=== PATIENT | female | born 1935 | race Two or more races ===

== ENCOUNTER 2017-05-01 12:38 | Emergency (ER) | payer OTHER ==
[2017-05-01 12:44] VITALS: BMI 23.8
[2017-05-01] MEDS ORDERED: SODIUM CHLORIDE 500 ML IV STA (14:04)
[2017-05-01] MEDS ORDERED: MECLIZINE HCL 25 MG TABLET (FP) PO ONE (14:04)
[2017-05-01] MEDS ORDERED: ONDANSETRON 4 MG/2 ML VIAL IVPUSH ONE (14:04)
[2017-05-01] MEDS ORDERED: ONDANSETRON 4 MG/2 ML VIAL ONE (14:14)
[2017-05-01] MEDS ORDERED: MECLIZINE HCL 12.5 MG TABLET ONE (14:15)
[2017-05-01 14:22] LABS: BASOPHIL 0.2 % (0-2.0); EOSINOPHIL 0.1 % (0-4.5); MCH 29.5 pg (25.7-33.7); MCHC 32.9 g/dl (32.0-36.0); MEAN CELL VOLUME 89.8 fl (80-96); MEAN PLT VOLUME 9.4 fl (7.5-11.1); NEUTROPHILS 85.6 % (42.8-82.8); PLATELET COUNT 223 K/MM3 (134-434); RDW 14.7 % (11.6-15.6); WHITE BLOOD COUNT 9.4 K/mm3 (4.0-10.0)
[2017-05-01 14:28] LABS: URINE APPEARANCE CLEAR; URINE BILIRUBIN NEGATIVE (NEGATIVE); URINE BLOOD NEGATIVE (NEGATIVE); URINE COLOR LTYELLOW; URINE GLUCOSE (UA) 2+ (NEGATIVE); URINE KETONE TRACE (NEGATIVE); URINE LEUK ESTERASE NEGATIVE (NEGATIVE); URINE NITRITE NEGATIVE (NEGATIVE); URINE PROTEIN NEGATIVE (NEGATIVE); URINE UROBILINOGEN NEGATIVE E.U./dl (0.2-1.0)
[2017-05-01 14:52] LABS: ALBUMIN 3.9 g/dl (3.4-5.0); ANION GAP 9 (8-16); BILIRUBIN,TOTAL 0.6 mg/dL (0.2-1.0); CALCIUM 8.8 mg/dL (8.5-10.1); CO2 27 mmol/L (21-32); CREATININE 0.5 mg/dL (0.55-1.02); GLUCOSE,RANDOM 174 mg/dL (74-106); SGOT/AST 19 U/L (15-37); SGPT/ALT 21 U/L (12-78)
[2017-05-01 14:55] LABS: ALK PHOS 137 U/L (45-117); TOT PROT 7.3 g/dl (6.4-8.2); TROPONIN I < 0.02 ng/ml (0.00-0.05)
--- NOTE | 2017-05-01 15:10 | PDOC ---
History of Present Illness - General Chief Complaint: Lightheaded Stated Complaint: VOMITING/DIZZINESS Time Seen by Provider: 05/01/17 13:33 History Source: Patient Exam Limitations: No Limitations - History of Present Illness Initial Comments: 05/01/17 14:10 81-year-old female with complaints of positional dizziness associated with nausea and intermittent vomiting since yesterday morning upon awakening. Patient states went to see her primary care physician Dr. Thibodeaux who prescribed her meclizine and told to take the medication twice a day. Patient states didn' t take the medication last night and then this morning but states symptoms returned upon awakening this morning he decided come to the ER. Patient has no complaints of visual changes, neck stiffness, fever, chills, chest pain, shortness of breath, abdominal pain, dysuria, diarrhea, or rash. Patient does state mild frontal headache which she describes a throbbing sensation. Patient states history of diabetes, hypertension, and denies history of vertigo prior to yesterday. Patient denies weakness, blurry vision and states she eats a hold onto furniture or sit down since she feels as if the room is spinning worsened with standing and position changes. Timing/Duration: reports: increasing Severity: Yes: mild Associated Symptoms: reports: nausea/vomiting Past History - Past Medical History Allergies/Adverse Reactions: Allergies Allergy/AdvReac Type Severity Reaction Status Date / Time No Known Drug Allergies Allergy Verified 05/01/17 12:44 Home Medications: Ambulatory Orders Meclizine HCl 12.5 mg PO BID 05/01/17 Metformin HCl [Metformin HCl ER] 500 mg PO DAILY 05/01/17 Metoprolol Succinate [Toprol Xl -] 25 mg PO DAILY 05/01/17 Anemia: No Asthma: No Cancer: No CVA: No COPD: No CHF: No Dementia: No Diabetes: Yes GI Disorders: No Disorders: No HTN: Yes Hypercholesterolemia: Yes Liver Disease: No Seizures: No Thyroid Disease: No - Surgical History Abdominal Surgery: No Appendectomy: No Cardiac Surgery: No Cholecystectomy: No Lung Surgery: No Neurologic Surgery: No Orthopedic Surgery: No - Psycho/Social/Smoking Cessation Hx Suicidal Ideation: No Smoking History: Never smoked Information on smoking cessation initiated: No Hx Alcohol Use: No Drug/Substance Use Hx: No Substance Use Type: None Hx Substance Use Treatment: No Patient Lives Alone: No Lives with/in: home health aid Review of Systems - Review of Systems Able to Perform ROS?: Yes Constitutional: No: Symptoms Reported HEENTM: No: Symptoms Reported Respiratory: No: Symptoms reported Cardiac (ROS): Yes: Lightheadedness ABD/GI: Yes: Nausea, Vomiting Musculoskeletal: No: Symptoms Reported Integumentary: No: Symptoms Reported Neurological: Yes: Dizziness Hematologic/Lymphatic: No: Symptoms Reported *Physical Exam - Vital Signs Last Vital Signs Temp Pulse Resp BP Pulse Ox 97.8 F 62 18 140/80 98 05/01/17 12:42 05/01/17 12:42 05/01/17 12:42 05/01/17 12:42 05/01/17 12:42 - Physical Exam General Appearance: Yes: Nourished, Appropriately Dressed. No: Apparent Distress HEENT: positive: EOMI, MARCIO. negative: Pale Conjunctivae Neck: positive: Supple Respiratory/Chest: positive: Lungs Clear, Normal Breath Sounds. negative: Respiratory Distress, Accessory Muscle Use Cardiovascular: positive: Regular Rhythm, Regular Rate. negative: Murmur Gastrointestinal/Abdominal: positive: Soft. negative: Tenderness Extremity: positive: Normal Capillary Refill. negative: Pedal Edema Integumentary: positive: Normal Color, Warm, Moist Neurologic: positive: Motor Strength 5/5, Other (positive Mcdowell pikes to the left.) ED Treatment Course - LABORATORY CBC & Chemistry Diagram: 05/01/17 14:16 05/01/17 14:16 - ADDITIONAL ORDERS Additional order review: 05/01/17 14:16 RBC 4.24 MCV 89.8 MCHC 29.5 RDW 14.7 MPV 9.4 Neutrophils % 85.6 H D Lymphocytes % 10.9 D Monocytes % 3.2 L Eosinophils % 0.1 D Basophils % 0.2 - RADIOLOGY Radiology Studies Ordered: Category Date Time Status HEAD CT WITHOUT CONTRAST [CT] Stat CT Scan 05/01/17 14:03 Ordered CHEST X-RAY PORTABLE* [RAD] Stat Radiology 05/01/17 14:04 Completed - Medications Given in the ED: ED Medications Discontinued Medications Generic Name Dose Route Start Last Admin Trade Name Freq PRN Reason Stop Dose Admin Meclizine HCl 25 mg 05/01/17 14:04 05/01/17 14:18 Antivert - PO 05/01/17 14:05 25 mg ONCE ONE Administration Ondansetron HCl 4 mg 05/01/17 14:04 05/01/17 14:19 Zofran Injection IVPUSH 05/01/17 14:05 4 mg ONCE ONE Administration Medical Decision Making - Medical Decision Making 05/01/17 15:15 Patient with episodic dizziness worsened with standing and position changes. Patient states was started on meclizine 12.[address] Thibodeaux but states minimal improvement. Patient also mentioning nausea and vomiting with episodes and presently has a mild frontal throbbing headache. 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 Patient ordered for cardiac workup including a head CT , meclizine 25 mg, Zofran, IV fluids and urinalysis. 05/01/17 16:04 Chest x-ray shows no evidence of basilar congestion or pulmonary consolidations. Head CT showed no intracranial hemorrhage or acute vascular territory infarction. Laboratory Tests 05/01/17 05/01/17 05/01/17 14:10 14:16 14:16 WBC 9.4 D Hgb 12.5 Hct 38.0 Neutrophils % 85.6 H D Monocytes % 3.2 L Sodium 140 Potassium 4.5 Chloride 104 Carbon Dioxide 27 Anion Gap 9 BUN 16 Creatinine 0.5 L D Creat Clearance w eGFR > 60 Random Glucose 174 H D Calcium 8.8 Magnesium Total Bilirubin 0.6 D AST 19 ALT 21 Alkaline Phosphatase 137 H Troponin I < 0.02 Urine Glucose (UA) 2+ H Urine Ketones Trace H 05/01/17 15:40 WBC Hgb Hct Neutrophils % Monocytes % Sodium Potassium Chloride Carbon Dioxide Anion Gap BUN Creatinine Creat Clearance w eGFR Random Glucose Calcium Magnesium 2.1 Total Bilirubin AST ALT Alkaline Phosphatase Troponin I Urine Glucose (UA) Urine Ketones 05/01/17 16:04 Selected Entries 05/01/17 12:42 Pulse Rate 62 Blood Pressure 140/80 Patient states feeling somewhat better. Patient will be revitalized and escorted in the ER to ambulate. 05/01/17 16:40 Patient ambulated in small steps with nurse. Patient states she became dizzy with standing but was tolerable. Case discussed with patient's PCP Dr. lobato and offered either patient admission or discharge with follow-up to ENT. Both the patient and daughter want to go home and will discharge patient home with the increase of her meclizine to 25 mg and a urine culture to be sent. *DC/Admit/Observation/Transfer Diagnosis at time of Disposition: Vertigo - Discharge Dispostion Disposition: HOME Condition at time of disposition: Improved - Referrals Referrals: Blu Lobato MD [Primary Care Provider] - Handy Denton MD [Staff Physician] - - Patient Instructions Printed Discharge Instructions: DI for Vertigo Additional Instructions: Please take medication as prescribed and discard previous medication. Please follow-up with ENT specialist and get up in increments from lying position as discussed. If symptoms worsen prior to your follow please return to the ED.
--- NOTE | 2017-05-01 15:43 | EKG ---
Test Reason : Blood Pressure : / mmHG Vent. Rate : 065 BPM Atrial Rate : 065 BPM P-R Int : 178 ms QRS Dur : 152 ms QT Int : 474 ms P-R-T Axes : 060 -57 014 degrees QTc Int : 492 ms NORMAL SINUS RHYTHM POSSIBLE LEFT ATRIAL ENLARGEMENT LEFT AXIS DEVIATION RIGHT BUNDLE BRANCH BLOCK ABNORMAL ECG WHEN COMPARED WITH ECG OF 10-JUN-2013 10:47, NO SIGNIFICANT CHANGE WAS FOUND Confirmed by MALCOLM PALMER MD ([id number]) on 05/01/2017 3:43:30 PM Referred By: Confirmed By:MALCOLM PALMER MD
[2017-05-01 16:27] VITALS: BP 161/75; PULSE 63; TEMP 97.7
== END 2017-05-01 16:50 | disposition home or self-care (01) ==
LOC: JER 12:38
PROC: 3E033GC Introduction of Other Therapeutic Substance into Peripheral Vein, Percutaneous Approach (ICD-10-PCS; principal; 2017-05-01)
DX: R42 Dizziness and giddiness (principal)
CPT/HCPCS: 36415; 70450-TC; 71010-TC; 80053; 81003; 82550; 83735; 84484; 85025; 87086; 93005; 93010; 96374; 99283-25

== ENCOUNTER 2021-12-07 13:15 | Emergency (ER) | payer OTHER ==
[2021-12-07 13:33] VITALS: BP 178/80; PULSE 70; TEMP 98.2; BMI 26.4
[2021-12-07] MEDS ORDERED: KETOROLAC TROMETHAMINE 60 MG/2 ML VIAL IM ONE (14:58)
[2021-12-07] MEDS ORDERED: ACETAMINOPHEN 325 MG TABLET (FP) PO ONE (14:58)
[2021-12-07] MEDS ORDERED: LIDOCAINE 5% TOPICAL PATCH TP ONE (14:58)
[2021-12-07] MEDS ORDERED: METHOCARBAMOL 500 MG TABLET PO ONE (14:59)
[2021-12-07] MEDS ORDERED: ACETAMINOPHEN 500 MG TABLET (FP) ONE (15:07)
[2021-12-07] MEDS ORDERED: KETOROLAC TROMETHAMINE 15 MG/ML VIAL ONE (15:07)
[2021-12-07] MEDS ORDERED: LIDOCAINE 5% TOPICAL PATCH ONE (15:07)
[2021-12-07] MEDS ORDERED: METHOCARBAMOL 500 MG TABLET ONE (15:07)
[2021-12-07] MEDS ORDERED: LIDOCAINE PATCH REMOVAL MC SCH (22:00)
== END 2021-12-07 16:25 | disposition home or self-care (01) ==
LOC: JERFT 13:15
PROC: 3E0233Z Introduction of Anti-inflammatory into Muscle, Percutaneous Approach (ICD-10-PCS; principal; 2021-12-07)
DX: M54.42 Lumbago with sciatica, left side (principal)
CPT/HCPCS: 96372; 99284-25